=== PATIENT | male | born 2005 | race African-American/Black ===

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

== ENCOUNTER 2024-04-13 08:51 | Emergency (ER) | payer SELFPAY ==
[2024-04-13] MEDS: Ketorolac 30 MG/ML SDV IM ONE (09:54)
== END 2024-04-13 10:05 | disposition home or self-care (01) ==
LOC: MW.ED 08:51
DX: S69.92XA Unspecified injury of left wrist, hand and finger(s), initial encounter (principal); Z79.899 Other long term (current) drug therapy; Z75.8 Other problems related to medical facilities and other health care; W22.8XXA Striking against or struck by other objects, initial encounter; Y93.89 Activity, other specified
CPT/HCPCS: 73130; 96372; 99283; J1885

== ENCOUNTER 2024-05-14 10:10 | Emergency (ER) | payer SELFPAY ==
[2024-05-14 10:32] LABS: BASOPHILS ABSOLUTE AUTO 0.01 K/uL (0.00-0.20); BASOPHILS PERCENT AUTO 0.3 % (0.0-1.0); EOSINOPHILS ABSOLUTE AUTO 0.08 K/uL (0.00-0.45); HEMATOCRIT 46.5 % (42.0-52.0); HEMOGLOBIN 15.4 g/dL (14.0-18.0); IMMATURE GRAN ABSOLUTE AUTO 0.01 K/uL (0.00-0.05); IMMATURE GRAN PERCENT AUTO 0.3 % (0.0-0.4); LYMPHOCYTES ABSOLUTE AUTO 1.28 K/uL (1.00-4.80); LYMPHOCYTES PERCENT AUTO 32.1 % (24.0-44.0); MEAN CORPUSCULAR HEMOGLOBIN 27.3 pg (28.0-32.0); MEAN CORPUSCULAR HGB CONC 33.1 g/dL (32.0-36.0); MEAN CORPUSCULAR VOLUME 82.3 fL (83.0-99.0); MEAN PLATELET VOLUME 10.7 fL (9.4-12.4); MONOCYTES ABSOLUTE AUTO 0.68 K/uL (0.00-0.80); NEUTROPHILS ABSOLUTE AUTO 1.93 K/uL (1.80-7.70); NEUTROPHILS PERCENT AUTO 48.3 % (41.0-71.0); PLATELET COUNT,PLT 180 K/uL (150-400); RED BLOOD CELL COUNT 5.65 M/uL (4.52-5.90); WHITE BLOOD CELL COUNT,WBC 3.99 K/uL (3.9-11.3)
[2024-05-14] MEDS ORDERED: Morphine 2 MG/ML SYRINGE IVPUSH PRN (10:49)
[2024-05-14 11:02] LABS: A/G RATIO 1.2 (0.9-1.6); ALBUMIN 3.8 g/dL (3.4-5.0); BILIRUBIN TOTAL 0.3 mg/dL (0.2-1.0); EST CRCL DRUG DOSING (CG) 127.83 mL/min; POTASSIUM,K 4.2 mmol/L (3.5-5.1); PROTEIN TOTAL,TP 7.1 g/dL (6.4-8.2)
[2024-05-14] MEDS: Pantoprazole 40 MG in Sodium Chloride 0.9% 10 ML IVPUSH ONE (11:23)
[2024-05-14] MEDS: Ondansetron 4 MG/2 ML SDV IVPUSH ONE (11:24)
[2024-05-14] MEDS: Ketorolac 30 MG/ML SDV IVPUSH ONE (11:24)
== END 2024-05-14 13:33 | disposition home or self-care (01) ==
LOC: MW.ED 10:10
DX: R10.12 Left upper quadrant pain (principal); Z79.899 Other long term (current) drug therapy
CPT/HCPCS: 36415; 76705; 80053; 83605; 83690; 85025; 96374; 96375; 99284; J1885; J2470; 99283